=== PATIENT | female | born 1955 | race African-American/Black ===

== ENCOUNTER 2019-04-10 11:50 | Emergency (ER) | payer BC, OTHER ==
[~2019-04-10] VITALS: Wt 86.0 kg
[~2019-04-10 11:50] MED LIST: ALLO300T2; AMLO-218; ASPI-727; ATEN50TA; INDO-39; SULF-182
[2019-04-10 11:53] VITALS: BP 124/64; PULSE 60; RESP 18
[2019-04-10] MEDS ORDERED: METO-429 PO (13:08)
[2019-04-10] MEDS ORDERED: CALC0.5C10 PO (13:09)
[2019-04-10] MEDS ORDERED: SPIR50TA PO (13:10)
[2019-04-10] MEDS ORDERED: NIFE60TA18 PO (13:10)
[2019-04-10] MEDS ORDERED: DOCU-144 PO (13:11)
[2019-04-10] MEDS ORDERED: FER325 PO (13:11)
--- NOTE | 2019-04-10 13:16 | ERD ---
ER Documentation Chief Complaint Chief Complaint MEDICATION REFILLS HPI Patient is a 63-year-old female with a past medical history of chronic kidney disease stage IV, gout, hypertension, iron deficiency, presents the ER for medication refills. Patient states she does not have a primary care physician due to insurance changes at this time. Patient requesting refill of all her chronic medications. Patient denies any symptoms at this time. Patient states she is only here for medication refill. Patient states she takes the following medications. 1. Spironolactone 50 mg daily 2. Calcitrol 0.025 mg daily 3. Nifedipine 60 mg twice daily 4. Colace 100 mg twice daily 5. iron sulfate 325 mg 3 times daily 6. Metoprolol 50 mg twice daily ROS All systems reviewed and are negative except as per history of present illness. Medications Home Meds Active Scripts Ferrous Sulfate* (Ferrous Sulfate*) 325 Mg Tabec, 325 MG PO TID, #90 TAB Prov:HOWARD PATIÑO PA-C 04/10/19 Docusate Sodium* (Colace*) 100 Mg Capsule, 100 MG PO BID, #60 CAP Prov:HOWARD PATIÑO PA-C 04/10/19 Nifedipine* (Nifedipine ER*) 60 Mg Tablet.sa, 60 MG PO BID, #60 TAB.SA Prov:HOWARD PATIÑO PA-C 04/10/19 Spironolactone* (Aldactone*) 50 Mg Tablet, 50 MG PO DAILY, #30 TAB Prov:HOWARD PATIÑO PA-C 04/10/19 Calcitriol* (Calcitriol*) 0.5 Mcg Capsule, 0.25 MCG PO DAILY, #30 CAP Prov:HOWARD PATIÑO PA-C 04/10/19 Metoprolol Tartrate* (Lopressor*) 50 Mg Tab, 50 MG PO BID, #60 TAB Prov:HOWARD PATIÑO-Seb[place] 04/10/19 Reported Medications Atenolol* (Atenolol*) 50 Mg Tablet 08/27/10 Amlodipine Besylate* (Norvasc*) 10 Mg Tablet 08/27/10 Allopurinol* (Allopurinol*) 300 Mg Tablet 08/27/10 Indomethacin* (Indocin*) 50 Mg Cap 08/27/10 Aspirin (Adult Aspirin) 81 Mg Tab.chew 08/27/10 Sulfamethoxazole-Trimethoprim* (Sulfamethoxazole-Trimethoprim* DS) 1 Tab Tablet 08/27/10 Allergies Allergies: Coded Allergies: Benazepril (Verified Allergy, Mild, 08/27/10) Penicillins (Verified Allergy, Mild, 08/27/10) PMhx/Soc History of Surgery: Yes (HYSTERECTOMY-1993; GALLBLADDER-) Anesthesia Reaction: No Hx Neurological Disorder: No Hx Respiratory Disorders: No Hx Cardiac Disorders: Yes (HTN; HIGH CHOLESTEROL) Hx Psychiatric Problems: No Hx Miscellaneous Medical Probl: No Hx Alcohol Use: No Hx Substance Use: No Hx Tobacco Use: No FmHx Family History: No diabetes Physical Exam Vitals Vital Signs Date Temp Pulse Resp B/P (MAP) Pulse Ox O2 O2 Flow FiO2 Time Delivery Rate 04/10/19 98.1 60 18 124/64 99 11:53 (84) Physical Exam GENERAL: Well-developed, well-nourished female. Appears in no acute distress. HEAD: Normocephalic, atraumatic. EYES: Pupils are equally reactive bilaterally. EOMs grossly intact. No conjunctival erythema. NECK: Supple. No meningismus. Normal range of motion of the neck. LUNG: Clear to auscultation bilaterally. No rhonchi, wheezing, rales or coarse breath sounds. HEART: Regular rate and rhythm. No murmurs, rubs or gallops. EXTREMITIES: Equal pulses bilaterally. No peripheral clubbing, cyanosis or edema. No unilateral leg swelling. NEUROLOGIC: Alert and oriented. Moving all four extremities without any difficulty. Normal speech. Steady gait. SKIN: Normal color. Warm and dry. No rashes or lesions. Procedures/MDM MEDICAL DECISION MAKING: Patient is a 63-year-old female presents the ER for concerns of medication refills. Vital signs were reviewed. Patient is afebrile. Patient was not hypoxic. Patient was hemodynamically stable. Medication refills were provided. Patient was advised to follow-up with her primary care physician for any additional refills. [facility] list of primary care physicians provided. DISCHARGE: At this time, patient is stable for discharge and outpatient management. I have instructed the patient to follow-up with his/her primary care physician in 1-2 days. I have discussed with the patient the possibility of needing to see a specialist for further workup and imaging studies if symptoms persist. I have instructed the patient to promptly return to the ER for any new or worsening symptoms including increased pain, fever, nausea, vomiting, weakness or LOC. The patient and/or family expressed understanding of and agreement with this plan. All questions were answered. Home care instructions were provided. Disclaimer: Inadvertent spelling and grammatical errors are likely due to EHR/dictation software use and do not reflect on the overall quality of patient care. Also, please note that the electronic time recorded on this note does not necessarily reflect the actual time of the patient encounter. Departure Diagnosis: Primary Impression: Encounter for medication refill Additional Impressions: Hypertension Hypertension type: unspecified Qualified Codes: I10 - Essential (primary) hypertension Constipation Constipation type: unspecified constipation type Qualified Codes: K59.00 - Constipation, unspecified Iron deficiency anemia Iron deficiency anemia type: unspecified iron deficiency Qualified Codes: D50.9 - Iron deficiency anemia, unspecified Condition: Fair Patient Instructions: High Blood Pressure (Hypertension), Constipation (Adult) Referrals: [facility] YOU HAVE RECEIVED A MEDICAL SCREENING EXAM AND THE RESULTS INDICATE THAT YOU DO NOT HAVE A CONDITION THAT REQUIRES URGENT TREATMENT IN THE EMERGENCY DEPARTMENT. FURTHER EVALUATION AND TREATMENT OF YOUR CONDITION CAN WAIT UNTIL YOU ARE SEEN IN YOUR DOCTORS OFFICE WITHIN THE NEXT 1-2 DAYS. IT IS YOUR RESPONSIBILITY TO MAKE AN APPOINTMENT FOR FOLOW-UP CARE. IF YOU HAVE A PRIMARY DOCTOR --you should call your primary doctor and schedule an appointment IF YOU DO NOT HAVE A PRIMARY DOCTOR YOU CAN CALL OUR PHYSICIAN REFERRAL HOTLINE AT IF YOU CAN NOT AFFORD TO SEE A PHYSICIAN YOU CAN CHOSE FROM THE FOLLOWING [facility] [address] [facility]. [facility] [address] [facility]. [facility] [address] [facility] [facility] [address] [facility] [facility] [address] [facility] [facility]. [address] [facility]. [facility] YOU HAVE RECEIVED A MEDICAL SCREENING EXAM AND THE RESULTS INDICATE THAT YOU DO NOT HAVE A CONDITION THAT REQUIRES URGENT TREATMENT IN THE EMERGENCY DEPARTMENT. FURTHER EVALUATION AND TREATMENT OF YOUR CONDITION CAN WAIT UNTIL YOU ARE SEEN IN YOUR DOCTORS OFFICE WITHIN THE NEXT 1-2 DAYS. IT IS YOUR RESPONSIBILITY TO MAKE AN APPOINTMENT FOR FOLOW-UP CARE. IF YOU HAVE A PRIMARY DOCTOR --you should call your primary doctor and schedule and appointment IF YOU DO NOT HAVE A PRIMARY DOCTOR YOU CAN CALL OUR PHYSICIAN REFERRAL HOTLINE AT . IF YOU CAN NOT AFFORD TO SEE A PHYSICIAN YOU CAN CHOSE FROM THE FOLLOWING ON LICENSE OF [facility] INSTITUTIONS: [facility] [address] [place] [address] [facility] [address] [place] [address] [facility] [address] [place] [address] Additional Instructions: Call your primary care doctor TOMORROW for an appointment during the next 1-2 days.See the doctor sooner or return here if your condition worsens before your appointment time. HOWARD PATIÑO PA-C April 10, 2019 13:15
== END 2019-04-10 13:40 | disposition home or self-care (01) ==
LOC: FTE 11:50
DX: I12.9 Hypertensive chronic kidney disease with stage 1 through stage 4 chronic kidney disease, or unspecified chronic kidney disease (principal); N18.4 Chronic kidney disease, stage 4 (severe); K59.00 Constipation, unspecified; D50.9 Iron deficiency anemia, unspecified; Z79.82 Long term (current) use of aspirin
CPT/HCPCS: 99281